=== PATIENT | male | born 1990 | race Caucasian/White ===

== ENCOUNTER 2018-01-27 20:47 | Emergency (ER) | END 2018-01-28 01:20 | disposition home or self-care (01) ==

== ENCOUNTER 2018-10-11 04:14 | Emergency (ER) | payer OTHER ==
[~2018-10-11] VITALS: Ht 170.2 cm; Wt 75.6 kg
[~2018-10-11 04:14] MED LIST: ALBU8.5H8 INH; BUTA1CAP39 PO; HYDR50TA15 PO; IBUP800T48 PO; NAPR-985 PO; POLY17PO6 PO
[2018-10-11 04:23] VITALS: BP 132/86; PULSE 67; RESP 17; Ht 170.2 cm; Wt 75.6 kg
[2018-10-11] MEDS ORDERED: IBUPROFEN 800 MG TAB PO ONE (05:30)
== END 2018-10-11 06:05 | disposition home or self-care (01) ==
LOC: FTE 04:14
DX: B34.9 Viral infection, unspecified (principal); Z73.3 Stress, not elsewhere classified
CPT/HCPCS: 99283